=== PATIENT | male | born 2000 | race African-American/Black ===

== ENCOUNTER 2024-07-31 10:42 | Inpatient (IN) | payer BC, OTHER ==
[2024-07-31 11:08] VITALS: BMI 24.3
[2024-07-31] MEDS ORDERED: MAGNESIUM HYDROX 2400MG/30ML ORAL SUSPENSION 30 ML CUP PO PRN (11:21)
[2024-07-31] MEDS ORDERED: ACETAMINOPHEN 325 MG TABLET (FP) PO PRN (11:21)
[2024-07-31] MEDS ORDERED: MAG HYDROX/AL HYDROX/SIMETH 30 ML UNIT-DOSE CUP PO PRN (11:21)
[2024-07-31] MEDS ORDERED: IBUPROFEN 600 MG TABLET (FP) PO PRN (11:21)
[2024-07-31] MEDS ORDERED: IBUPROFEN 400 MG TABLET (FP) PO PRN (11:21)
[2024-07-31] MEDS ORDERED: POLYETHYLENE GLYCOL (HEALTHYLAX) 3350 17 GM PACKET PO PRN (11:21)
[2024-07-31] MEDS ORDERED: ONDANSETRON *ODT* 4 MG TABLET SL PRN (11:21)
[2024-07-31] MEDS ORDERED: DICYCLOMINE HCL 10 MG CAPSULE PO PRN (11:21)
[2024-07-31] MEDS ORDERED: BISMUTH SUBSALICYLATE 262 MG/15 ML BTL PO PRN (11:21)
[2024-07-31] MEDS ORDERED: BENZOCAINE/MENTHOL (CHLORASEPTIC ) LOZENGE MM PRN (11:21)
[2024-07-31] MEDS ORDERED: LOPERAMIDE HCL 2 MG CAPSULE PO PRN (11:21)
[2024-07-31] MEDS ORDERED: BENZONATATE 200 MG CAPSULE PO PRN (11:21)
[2024-07-31] MEDS ORDERED: guaiFENesin 600 MG TABLET.ER (FP) PO PRN (11:21)
[2024-07-31] MEDS ORDERED: diazePAM 5 MG TABLET PO PRN (13:29)
[2024-07-31] MEDS: METHOCARBAMOL 500 MG TABLET PO PRN (13:55)
[2024-07-31] MEDS: hydrOXYzine PAMOATE 25 MG CAPSULE (FP) PO PRN (13:55)
[2024-07-31] MEDS: diazePAM 5 MG TABLET PO ONE (13:55)
[2024-07-31] MEDS: diazePAM 5 MG TABLET PO SCH (17:26)
[2024-07-31] MEDS: THIAMINE 100 MG TABLET PO SCH (22:37)
[2024-07-31] MEDS: QUEtiapine FUMARATE 50 MG TABLET PO SCH (22:37)
[2024-07-31] MEDS: MELATONIN 5 MG TABLETS PO SCH (22:37)
[2024-08-01] MEDS: diazePAM 5 MG TABLET PO SCH (07:03)
[2024-08-01 09:34] LABS: POTASSIUM 4.1 mmol/L (3.5-5.1)
[2024-08-01 09:43] LABS: HEMATOCRIT 43.7 % (35.4-49); HEMOGLOBIN 14.4 GM/dL (11.7-16.9); MCHC 32.9 g/dl (32.0-35.9); MEAN PLT VOLUME 7.8 fl (7.5-11.1); PLATELET COUNT 191 10^3/uL (134-434); RDW 14.1 % (11.9-15.9); WHITE BLOOD COUNT 4.1 K/mm3 (4.0-10.0)
[2024-08-01] MEDS: PRENATAL VITAMINS W/ FOLIC ACID TABLET (FP) PO SCH (09:44)
[2024-08-01 10:10] LABS: ALBUMIN 3.6 g/dl (3.4-5.0); BLOOD UREA NITROGEN 11.1 mg/dL (7-18)
[2024-08-01 10:12] LABS: BILIRUBIN,TOTAL 1.1 mg/dL (0.2-1)
[2024-08-01 10:13] LABS: CALCIUM 9.7 mg/dL (8.5-10.1)
[2024-08-01 10:14] LABS: TOT PROT 6.8 g/dl (6.4-8.2)
[2024-08-02] MEDS: diazePAM 5 MG TABLET PO SCH (05:43)
[2024-08-03] MEDS: diazePAM 5 MG TABLET PO SCH (06:08)
[2024-08-03 09:11] VITALS: BP 121/74; PULSE 60; RESP 16; TEMP 98.7
[2024-08-03] MEDS: NALOXONE (NYS OPIOID OVERDOSE PROGRAM) 4 MG/0.1 ML SPRAY NS SCH (12:05)
[2024-08-04] MEDS ORDERED: diazePAM 5 MG TABLET PO ONE (06:00)
[2024-08-04] MEDS ORDERED: NALOXONE (NYS OPIOID OVERDOSE PROGRAM) 4 MG/0.1 ML SPRAY NS SCH (08:30)
== END 2024-08-03 13:00 | disposition home or self-care (01) | DRG 897 ==
LOC: YASAS 10:42 → Y6N 12:15
PROVIDERS: ADMIT Allergy & Immunology; ATTEND Allergy & Immunology
DX: F10.230 Alcohol dependence with withdrawal, uncomplicated (principal); F12.20 Cannabis dependence, uncomplicated; F41.9 Anxiety disorder, unspecified; G47.00 Insomnia, unspecified
CPT/HCPCS: 36415; 80053; 80305; 80307; 85027; 86780; 93005; 93010